=== PATIENT | male | born 1940 ===

== ENCOUNTER 2017-10-21 09:12 | Emergency (ER) | payer MEDICARE, BC ==
[2017-10-21 10:41] VITALS: BP 126/65
--- NOTE | 2017-10-21 10:52 | UC ---
FLU HPI <Candis Hamm - Last Filed: 10/21/17 10:59> - HPI Summary HPI Summary: Sore throat,nasal drip and cough worsening over the past week, no fevers - History of Current Complaint Hx Obtained From: Patient Onset/Duration: Sudden Onset, Lasting Weeks - 1, Still Present Severity Currently: Moderate Severity Initially: Moderate Pain Intensity: 5 Associated Signs & Symptoms: Positive: Cough, Sore Throat, Nasal Congestion <Haily Teixeira - Last Filed: 10/21/17 11:25> - History of Current Complaint Chief Complaint: UCRespiratory Stated Complaint: FLU LIKE SYMPTOMS Time Seen by Provider: 10/21/17 10:49 - Allergy/Home Medications Allergies/Adverse Reactions: Allergies Allergy/AdvReac Type Severity Reaction Status Date / Time Penicillins Allergy See Comment Verified 10/21/17 10:29 Home Medications: Home Medications Guaifenesin-Codeine [Virtussin A/C] 1 law PO ONCE 10/21/17 [History Confirmed ] PMH/Surg Hx/FS Hx/Imm Hx Previously Healthy: No Endocrine History: Dyslipidemia - Surgical History Surgical History: Yes Surgery Procedure, Year, and Place: SINUS SURGERY-25 YEARS AGO. SURGERY FOR ENLARGED PROSTATE- 5 YRS AGO. CATARACT SURGERY LEFT EYE - Family History Known Family History: Positive: None - Social History Occupation: Employed Part-time Lives: With Family Alcohol Use: None Alcohol Amount: 1 SHOT OOZO Substance Use Type: None Smoking Status (MU): Former Smoker When Did the Patient Quit Smoking/Using Tobacco: A TEEN <Haily Teixeira - Last Filed: 10/21/17 11:25> Review of Systems Constitutional: Negative Skin: Negative Eyes: Negative ENT: Sore Throat, Nasal Discharge Respiratory: Cough Cardiovascular: Negative Gastrointestinal: Negative Genitourinary: Negative Motor: Negative Neurovascular: Negative Musculoskeletal: Negative Neurological: Negative Psychological: Negative Is Patient Immunocompromised?: No All Other Systems Reviewed And Are Negative: Yes <Haily Teixeira - Last Filed: 10/21/17 11:25> Physical Exam Vital Signs: Initial Vital Signs Temp 99.2 F 10/21/17 10:35 Pulse 90 10/21/17 10:35 Resp 18 10/21/17 10:35 BP 126/65 10/21/17 10:35 Pulse Ox 98 10/21/17 10:35 <Candis Hamm - Last Filed: 10/21/17 10:59> Triage Information Reviewed: Yes Appearance: Well-Appearing, No Pain Distress, Well-Nourished Vital Signs: Initial Vital Signs Temp 99.2 F 10/21/17 10:35 Pulse 90 10/21/17 10:35 Resp 18 10/21/17 10:35 BP 126/65 10/21/17 10:35 Pulse Ox 98 10/21/17 10:35 Vital Signs Reviewed: Yes Eye Exam: Normal Eyes: Positive: Conjunctiva Clear ENT Exam: Normal ENT: Positive: Normal ENT inspection, Hearing grossly normal, Pharynx normal, Nasal congestion, Nasal drainage, TMs normal, Uvula midline. Negative: Tonsillar swelling, Tonsillar exudate, Trismus, Muffled voice, Hoarse voice, Sinus tenderness Dental Exam: Normal Neck exam: Normal Neck: Positive: Supple, Nontender, No Lymphadenopathy Respiratory Exam: Normal Respiratory: Positive: Chest non-tender, Lungs clear, Normal breath sounds, No respiratory distress, No accessory muscle use Cardiovascular Exam: Normal Cardiovascular: Positive: RRR, No Murmur, Pulses Normal, Brisk Capillary Refill Musculoskeletal Exam: Normal Musculoskeletal: Positive: Strength Intact, ROM Intact, No Edema Neurological Exam: Normal Neurological: Positive: Alert, Muscle Tone Normal Psychological Exam: Normal Skin Exam: Normal <Haily Teixeira - Last Filed: 10/21/17 11:25> Diagnostics - Laboratory Diagnostic Studies Completed/Ordered: Influenza A/B (-) <Haily Teixeira - Last Filed: 10/21/17 11:25> Flu Course/Dx - Course Course Of Treatment: zyrtec, Robitussin a/c increase fluids follow with pcp - Differential Dx/Diagnosis Provider Diagnoses: Post nasal drip <Haily Teixeira - Last Filed: 10/21/17 11:25> Discharge <Candis Hamm - Last Filed: 10/21/17 10:59> <Haily Teixeira - Last Filed: 10/21/17 11:25> - Discharge Plan Condition: Stable Disposition: HOME Patient Education Materials: Cetirizine (By mouth), Acute Cough (ED), Postnasal Drip (DC) Referrals: Grover Barone MD [Primary Care Provider] - If Needed
== END 2017-10-21 11:15 | disposition home or self-care (01) ==
LOC: UCCORT 09:12
DX: R09.82 Postnasal drip (principal); Z72.89 Other problems related to lifestyle; Z87.891 Personal history of nicotine dependence
CPT/HCPCS: 87502; 99211; G0463

== ENCOUNTER 2018-07-17 10:06 | Day surgery (SDC) | payer MEDICARE, BC ==
[~2018-07-17 10:06] MED LIST: Acetaminophen TAB* 325 MG PO PRN; Buffered Lidocaine 0.9% SYRIN* 5 ML/SYR SYRINGE INTRADERM ONE
[2018-07-17] MEDS ORDERED: fentaNYL* 50 MCG/ML 2 ML VIAL (100 MCG VIAL) ONE (10:55)
[2018-07-17 12:07] VITALS: BP 127/67
[2018-07-17] MEDS ORDERED: Phenylephrine 2.5% OPTH.SOL* 2 ML BTL ONE (12:27)
[2018-07-17] MEDS ORDERED: Ketorolac 0.5% OPHTH (NF) 0.5 % 5 ML BTL ONE (12:27)
[2018-07-17] MEDS ORDERED: Cyclopentolate 1% OPTH.SOL* 2 ML BTL ONE (12:27)
[2018-07-17] MEDS ORDERED: Lidocaine 1%* 5 ML VIAL ONE (12:27)
[2018-07-17] MEDS ORDERED: Tropicamide 1% OPTH.SOL* BTL ONE (12:27)
[2018-07-17] MEDS ORDERED: Tetracaine 0.5% OPTH.SOL 4 ML* 1 DROP BTL ONE (12:27)
[2018-07-17] MEDS ORDERED: Neomycin/Polymy/Dex OPHTH.OIN* 3.5 GM ONE (12:27)
--- NOTE | 2018-07-17 21:15 | OP ---
DATE OF OPERATION: 07/17/18 [facility] DATE OF : 40 SURGEON: Dr. Chris Mcgovern. ENRICHMENT SPECIALIST: None. ANESTHESIA: Topical with intravenous sedation. PRE-OP DIAGNOSIS: Cataract, right eye. POST-OP DIAGNOSIS: Cataract, right eye. OPERATIVE PROCEDURE: Phacoemulsification and cataract extraction with posterior chamber intraocular lens implant, right eye. COMPLICATIONS: None. BLOOD LOSS: None. DESCRIPTION OF PROCEDURE: The patient was brought to the operating room and received a small amount of intravenous sedation. A drop of tetracaine was placed in his right eye. He was prepped and draped in the usual sterile fashion for ophthalmic surgery and attention was directed to the right eye where a speculum was placed. A paracentesis was created at the 11 o'clock position and 0.1 cc of 1 percent preservative-free lidocaine was injected into the anterior chamber followed by DisCoVisc. The eye was digitally stabilized while a 2.75 mm keratome was used to create a triplanar clear corneal incision at the 9 o'clock position. A continuous curvilinear capsulorrhexis was created with a cystotome and Utrata forceps. BSS on a cannula was used to hydrodissect the lens from the capsule. Phacoemulsification was performed in a divide-and- conquer technique to create four fragments which were removed. Residual cortical material was removed with irrigation and aspiration. DisCoVisc was used to inflate the capsular bag and an [id number] 18.0 diopter lens was folded and inserted into the capsular bag. DisCoVisc was removed using irrigation and aspiration. BSS on a cannula was used to hydrate the corneal stroma and seal the wound. At the end of the case the pupil was round and the lens was centered. The eye was of normal pressure and the wound was water tight. The speculum was removed and topical Maxitrol ointment was placed on the surface of the eye. The eye was closed, patched and shielded and the patient was sent to the recovery room in stable condition with post operative instructions and follow-up appointment given. [id number]/CPS #: [id number] PAMELA
== END 2018-07-17 12:13 | disposition home or self-care (01) ==
LOC: OREAST 10:06
PROVIDERS: ATTEND Ophthalmology
DX: H25.11 Age-related nuclear cataract, right eye (principal); K21.9 Gastro-esophageal reflux disease without esophagitis; E78.00 Pure hypercholesterolemia, unspecified; E78.5 Hyperlipidemia, unspecified; K64.9 Unspecified hemorrhoids; Z88.0 Allergy status to penicillin; Z88.5 Allergy status to narcotic agent; N40.0 Benign prostatic hyperplasia without lower urinary tract symptoms; L57.8 Other skin changes due to chronic exposure to nonionizing radiation
CPT/HCPCS: A9270-GY; J3010; V2632